=== PATIENT | female | born 1965 | race Native Hawaiian/Other Pacific Islander ===

== ENCOUNTER 2021-08-28 12:24 | Emergency (ER) | payer SELFPAY ==
[2021-08-28 12:30] VITALS: BP 122/55
[2021-08-28] MEDS ORDERED: ALBUTEROL 2.5 MG/3 ML NEBU IH ONE (12:58)
--- NOTE | 2021-08-28 12:59 | Emergency Department Report ---
Minor Respiratory - HPI Chief Complaint: Dyspnea/Respdistress Stated Complaint: SOB Time Seen by Provider: 08/28/21 12:35 Duration: 2 Days Pain Location: Chest Severity: mild Minor Respiratory: Yes Able to Tolerate Fluids, Yes Chest Pain (WITH COUGH), Yes Shortness of Breath (WITH WHEEZING ), No Rhinorrhea, No Sore Throat, No Ear Pain, No Cough, No Sick Contacts, No Hemoptysis, No Fever Other History: 55 YO COMES TO ER WITH SOB AND WHEEZING. HX ASTHMA. IS COVID IMMUNIZED. DENIES FEVER. SOB WITH WHEEZING. CP WHEN SHE COUGHS. NON PRODUCTIVE COUGH. HAS PCP APPNT IN AM. HOME RX. BUSPIRONE. METOP. METFORMIN. PROZAC. SYNTHROID. AMBULATORY AND NON TOXIC ON ARRIVAL TO ER ED Review of Systems ROS: Stated complaint: SOB Other details as noted in HPI Comment: All other systems reviewed and negative ED Past Medical Hx - Past Medical History Previous Medical History?: Yes Hx Hypertension: Yes Hx Diabetes: Yes - Surgical History Past Surgical History?: No - Family History Family history: no significant - Social History Smoking Status: Never Smoker Substance Use Type: None - Medications Home Medications: Home Medications Medication Instructions Recorded Confirmed Last Taken Type Albuterol Mdi (or & Nicu Only) 2 puff IH QID PRN #1 inhalation 08/28/21 Unknown Rx [ProAir HFA Inhaler] Fluticasone [Flonase] 1 spray NS QDAY #1 bottle 08/28/21 Unknown Rx predniSONE [Deltasone] 20 mg PO DAILY #5 tablet 08/28/21 Unknown Rx Minor Respiratory Exam - Exam General: Vital signs noted. No distress. Alert and acting appropriately. HEENT: Yes Moist Mucous Membranes, No Pharyngeal Erythema, No Pharyngeal Exudates, No Rhinorrhea, No Conjuctival Injection, No Frontal Tenderness, No Maxillary Tenderness Ear: Neither TM Bulge, Neither TM Erythema, Neither EAC Pain, Neither EAC Discharge Neck: Yes Supple, No Adenopathy Lungs: Yes Good Air Exchange, Yes Wheezes, No Ronchi, No Stridor, No Cough, No Labored Respirations, No Retractions, No Use of Accessory Muscles, No Other Abnormal Lung Sounds Heart: Yes Regular, No Murmur Abdomen: Yes Normal Bowel Sounds, No Tenderness, No Peritoneal Signs Skin: No Rash, No Edema Neurologic: Alert and oriented, no deficits. Musculoskeletal: Unremarkable. ED Course Vital Signs 08/28/21 12:29 Temperature 99.1 F Pulse Rate 66 Respiratory 24 Rate Blood Pressure 122/55 O2 Sat by Pulse 96 Oximetry ED Medical Decision Making - Radiology Data Radiology results: report reviewed, image reviewed NAP - Medical Decision Making Vital Signs 08/28/21 12:29 Temperature 99.1 F Pulse Rate 66 Respiratory 24 Rate Blood Pressure 122/55 O2 Sat by Pulse 96 Oximetry XRAY NOTED DUONEB AND PREDNISONE STARTED DEC WHEEAING SP NEB DC HOME WITH DC PLAN OF CARE INCLUDING PCP FOLLOW UP IN AM. PT VERBALIZES UNDERSTANDING OF PLAN OF CARE. AMBULATORY AND NON ILL APPEARING ON DISCHARGE FROM ER - Differential Diagnosis COVID/PNA/URI/ASTHMAAE Critical care attestation.: If time is entered above; I have spent that time in minutes in the direct care of this critically ill patient, excluding procedure time. ED Disposition Clinical Impression: Asthma Qualifiers: Asthma severity: mild Asthma persistence: intermittent Asthma complication type: with acute exacerbation Qualified Code(s): J45.21 - Mild intermittent asthma with (acute) exacerbation Disposition: 01 HOME / SELF CARE / HOMELESS Is pt being admited?: No Does the pt Need Aspirin: No Condition: Stable Instructions: Asthma, Adult, Asthma (ED) Additional Instructions: MEDS ORDERED TODAY FOLLOW UP WITH PCP IN AM XRAY- NO INFECTION TODAY CONSIDER COVID TESTING TYLENOL FOR PAIN OR FEVER DIET AND ACTIVITY TOLERATED Prescriptions: predniSONE [Deltasone] 20 mg PO DAILY #5 tablet Fluticasone [Flonase] 1 spray NS QDAY #1 bottle Albuterol Mdi (or & Nicu Only) [ProAir HFA Inhaler] 2 puff IH QID PRN #1 inhalation PRN Reason: Shortness Of Breath Referrals: JASPREET THORNTON MD [Staff Physician] - 3-5 Days Time of Disposition: 13:22
--- NOTE | 2021-08-28 13:17 | XRay Report ---
CHEST 2 VIEWS INDICATION: SOB. COMPARISON: none FINDINGS: Support devices: None. Heart: Within normal limits. Lungs/pleura: No acute air space or interstitial disease. No pneumothorax. Additional findings: None. IMPRESSION: No acute findings. Signer Name: Han Lu Jr, MD Signed: 08/28/2021 1:13 PM Workstation Name: [id number]
[2021-08-28] MEDS ORDERED: predniSONE 20 MG TAB PO ONE (13:23)
== END 2021-08-28 14:23 | disposition home or self-care (01) ==
LOC: ED 12:24
DX: J45.909 Unspecified asthma, uncomplicated (principal); I10 Essential (primary) hypertension; E11.9 Type 2 diabetes mellitus without complications
CPT/HCPCS: 71046; 99283

== ENCOUNTER 2022-05-16 14:25 | Emergency (ER) | payer OTHER | END 2022-05-16 15:00 | disposition left against medical advice (07) | LOC: ED 14:25 | DX: M79.605 Pain in left leg (principal); Z53.21 Procedure and treatment not carried out due to patient leaving prior to being seen by health care provider ==